=== PATIENT | male | born 1965 | race Hispanic/Latino ===

== ENCOUNTER 2018-05-13 11:59 | Day surgery (SDC) | payer OTHER ==
[2018-05-12 09:22] VITALS: BMI 36.9
[2018-05-13 13:06] VITALS: BP 157/95; PULSE 102; RESP 22; TEMP 97.8; O2SAT 97
== END 2018-05-13 13:57 | disposition home or self-care (01) ==
LOC: C.SDS 11:59
PROVIDERS: ATTEND Podiatrist Foot & Ankle Surgery
DX: Z53.9 Procedure and treatment not carried out, unspecified reason (principal); S93.491S Sprain of other ligament of right ankle, sequela; M25.371 Other instability, right ankle